=== PATIENT | female | born 1990 | race Caucasian/White ===

== ENCOUNTER 2018-11-28 12:30 | Inpatient (IN) | payer OTHER ==
[~2018-11-28] VITALS: Ht 152.4 cm; Wt 92.0 kg
[~2018-11-28 12:30] MED LIST: ACET500C5 PO; BEN25 PO; PREN-99 PO; SODI126M NASAL
[2018-11-28 13:14] VITALS: BP 120/76; PULSE 82; RESP 20; Ht 152.4 cm; Wt 92.0 kg
[2018-11-28] MEDS: LACTATED RINGER'S 1,000 ML IV SCH ×2 (14:07→21:30)
[2018-11-28] MEDS ORDERED: LACTATED RINGER'S 1,000 ML IV SCH (15:13)
[2018-11-28] MEDS ORDERED: ACETAMINOPHEN 325 MG TAB PO PRN (15:30)
--- NOTE | 2018-11-28 17:17 | TRIAGE ---
OB Triage Datetime Report Generated by CPN: 11/28/2018 17:16 Datetime: 11/28/2018 17:09 Stage of : Antepartum Maternal Assessment Level of Consciousness: Fully Conscious Headache: Denies Nausea/Vomiting: Denies RUQ Epigastric Pain: Denies Labor Evaluation Frequency: 3/hr Monitor Mode: External Duration (sec)2399: 50 Quality: Moderate Resting Tone [employer]: Relaxed Heart Rate FHR Baseline Rate: 125 Monitor Mode: External US Variability: Moderate 6-25 bpm Accelerations: 15X15 Decelerations: None Pain Assessment Pain Scale: 7 Pain Presence: Intermittent Pain Type: Contraction Pain Location: Abdomen Pain Relief Measures: Comfort Measures Membrane Status: Intact (Annotations: pt. denies srom or any loss of fluids) Vaginal Bleeding: None Datetime: 11/28/2018 16:26 Labor Evaluation Frequency: 0/hr Monitor Mode: External Heart Rate FHR Baseline Rate: 130 Monitor Mode: External US Variability: Moderate 6-25 bpm Accelerations: 15X15 Decelerations: None Datetime: 11/28/2018 16:02 Assessment Type: Admission Assessment Vaginal Bleeding: None Maternal Assessment Level of Consciousness: Fully Conscious DTR's/Clonus: DTRs 2+; No Clonus Headache: Denies Blurred Vision: No Respiratory Effort: Unlabored; Regular Rhythm; Equal Expansion Breath Sounds, Left: Clear and Equal Breath Sounds, Right: Clear and Equal Nausea/Vomiting: Denies RUQ Epigastric Pain: Denies Lower Extremities Edema: None Upper Extremities Edema: None Facial Edema: None Fall Risk Assessment History of Falling: (0) No Secondary Diagnosis: (0) No Ambulatory Aid: (0) Bedrest/Nurse Assist IV Therapy: (20) Yes (Annotations: lr 125ml/hr) Gait: (0) Normal/Bedrest/Immobile Mental Status: (0) Oriented to Own Ability Fall Score: 20 Fall Risk Score Definition: No Risk: No action required Pain Assessment Pain Scale: 7 Pain Presence: Intermittent Pain Type: Contraction Membrane Status: Intact Datetime: 11/28/2018 15:42 Monitor Mode: External Quality: Moderate Resting Tone [employer]: Relaxed Pain Assessment Pain Scale: 7 Pain Presence: Intermittent Pain Type: Contraction Pain Location: Abdomen Pain Relief Measures: Comfort Measures Datetime: 11/28/2018 15:00 Stage of : OB Triage Maternal Assessment Level of Consciousness: Fully Conscious Labor Evaluation Frequency: 4UC/HR Monitor Mode: External Duration (sec)2399: 80-90 Quality: Mild Resting Tone [employer]: Relaxed Heart Rate FHR Baseline Rate: 125 Monitor Mode: External US Variability: Moderate 6-25 bpm Accelerations: 15X15 Decelerations: None Category: Category I Pain Assessment Pain Scale: 4 Pain Presence: Intermittent Pain Type: Cramping Pain Location: Abdomen Pain Goal: 3 Membrane Status: Intact Vaginal Bleeding: None Datetime: 11/28/2018 14:00 Stage of : OB Triage Maternal Assessment Level of Consciousness: Fully Conscious Labor Evaluation Frequency: 4UC/HR Monitor Mode: External Duration (sec)2399: 60-80 Quality: Mild Resting Tone [employer]: Relaxed Heart Rate FHR Baseline Rate: 135 Monitor Mode: External US Variability: Moderate 6-25 bpm Accelerations: 15X15 Decelerations: None Category: Category I Pain Assessment Pain Scale: 4 Pain Presence: Intermittent Pain Type: Cramping Pain Location: Abdomen Pain Goal: 3 Membrane Status: Intact Vaginal Bleeding: None Datetime: 11/28/2018 13:30 Labor Evaluation Frequency: 8-11 Monitor Mode: External Duration (sec)2399: 60-80 Quality: Strong Pattern: Normal: <= 5 Contractions in 10 Minutes Resting Tone [employer]: Relaxed Heart Rate FHR Baseline Rate: 130 Monitor Mode: External US FHR Baseline Changes: No Baseline Change Variability: Moderate 6-25 bpm Accelerations: 15X15 Decelerations: None Category: Category I Pain Assessment Pain Scale: 7 Pain Presence: Intermittent Pain Type: Contraction Pain Location: Abdomen Pain Goal: 2 Datetime: 11/28/2018 13:07 Vaginal Exam Dilatation (cms): 1.0 Effacement (%): 50 Exam By: DR. NICHOLAS Datetime: 11/28/2018 12:52 Assessment Type: Triage Maternal Assessment Level of Consciousness: Fully Conscious DTR's/Clonus: DTRs 2+; No Clonus Headache: Denies Blurred Vision: No Respiratory Effort: Regular Rhythm; Equal Expansion Breath Sounds, Left: Clear and Equal Breath Sounds, Right: Clear and Equal Nausea/Vomiting: Denies RUQ Epigastric Pain: Denies Lower Extremities Edema: None Degree: None Upper Extremities Edema: None Degree: None Facial Edema: None Fall Risk Assessment History of Falling: (0) No Secondary Diagnosis: (0) No Ambulatory Aid: (0) Bedrest/Nurse Assist IV Therapy: (0) No Gait: (0) Normal/Bedrest/Immobile Mental Status: (0) Oriented to Own Ability Fall Score: 0 Fall Risk Score Definition: No Risk: No action required Datetime: 11/28/2018 12:50 Time of Arrival: 11/28/2018 12:00 EGA: 37.3 Arrived By: Ambulatory Arrived From: Home Chief Complaint: pt. sent from clinic for eval. of 's Movement: Present Contractions: Irregular Rupture of Membranes: Denies Vaginal Bleeding: None Vaginal Discharge: Denies Recent Sexual Intercouse: Denies Abdominal Trauma: Not Applicable Patient Complaints: Contractions; Cramping; Back Pain Time Provider Notified: 11/28/2018 13:07 Provider Notified: ellen Initial Plan: EFM/SVE/IV HYDRATION/EFW/BPP/CBC/CMP/UA/ Datetime: 11/28/2018 12:49 Monitor Mode: External Monitor Mode: External US Datetime: 11/11/2018 22:03 Monitor Mode: External Contraction Comments: NONE Heart Rate FHR Baseline Rate: 130 Monitor Mode: External US Variability: Moderate 6-25 bpm Accelerations: 15X15 Decelerations: None Category: Category I Datetime: 11/11/2018 21:24 Labor Evaluation Frequency: X2 Monitor Mode: External Duration (sec)2399: 40-60 Quality: Mild Pattern: Normal: <= 5 Contractions in 10 Minutes Resting Tone [employer]: Relaxed Heart Rate FHR Baseline Rate: 135 Monitor Mode: External US Variability: Moderate 6-25 bpm Accelerations: 15X15 Decelerations: None Category: Category I Datetime: 11/11/2018 21:17 EGA: 35.0 Datetime: 11/11/2018 20:50 Fall Score: 0 Fall Risk Score Definition: No Risk: No action required
[2018-11-29] MEDS: LACTATED RINGER'S 1,000 ML IV SCH ×2 (01:35→09:33)
--- NOTE | 2018-12-02 17:49 | DS ---
DATE OF ADMISSION: 11/28/2018 DATE OF DISCHARGE: 11/29/2018 HISTORY OF PRESENT ILLNESS: See dictated history and physical. PHYSICAL EXAMINATION: See dictated history and physical. ADMITTING DIAGNOSIS: A 37-4/7 weeks intrauterine , rule out labor. HOSPITAL COURSE: The patient had an ultrasound done and the RENE was 6.1. The following day after ad mission on 11/29/2018 after IV hydration, the repeat RENE was 9.1. She did not have any more pain. N o contractions. The cervix was still 1 cm thick and no change, so she was discharged home in good an d stable condition on general diet and activity was restricted. She was counseled. She was instruct ed. She was told to come back to the clinic in 1 week. She was told to come back to the hospital if there is any problem or concern. FINAL DIAGNOSES: 1. A 37-4/7 weeks intrauterine . 2. Dehydration. 3. Risk of oligohydramnios. Dictated By: PATRICIO SWAN/JAYESH Conf#: [id number] DID#: [id number]
--- NOTE | 2018-12-02 17:53 | PREOPHP ---
DATE OF ADMISSION: 11/28/2018 HISTORY OF PRESENT ILLNESS: This is a 28-year-old lady, 4, para 3, EDC 12/16/2018 at 37 and 3/7 weeks, admitted to labor and delivery area, rule out labor. She started to have contractions few hours prior to admission. PAST PERSONAL HISTORY: No history of diabetes, TB, asthma. ALLERGIES: NO ALLERGIES. SOCIAL HISTORY: The patient does not smoke. She does not drink. MEDICATIONS: She does not take any drugs except her: 1. Iron. 2. Vitamins. GYNECOLOGIC HISTORY: She had menarche at the age of 11, every 28 days interval, 3 to 4 days duration and moderate in amount. FAMILY HISTORY: Noncontributory. OBSTETRICAL HISTORY: She is 4, para 3 with 3 normal deliveries. FAMILY HISTORY: Mother and brother have diabetes. Mother and grandmother on mother's side have hype rtension. REVIEW OF SYSTEMS: CARDIOVASCULAR: No chest pain. RESPIRATORY: No cough. GASTROINTESTINAL: No diarrhea, no vomiting. GENITOURINARY: No dysuria. PHYSICAL EXAMINATION: GENERAL: Reveals a conscious, coherent lady and in no acute distress. VITAL SIGNS: Her blood pressure 120/80, pulse rate 80 per minute, respirations 16 per minute. BREASTS, HEART AND LUNGS: Within normal limits. ABDOMEN: Soft. Fundic height was 36 cm. heart tones 140 per minute. PELVIC: On admission revealed the cervix to be 1 cm dilated, thick, station -3 in cephalic presentat ion with the bag of water intact. EXTREMITIES: No pedal edema. ADMITTING DIAGNOSES: 1. A 37 and 3/7 weeks' intrauterine . 2. Rule out labor. The patient was planned to have OB ultrasound and IV hydration. The plans were explained to the rowan ent and she understood everything totally. The risks, benefits and alternatives were discussed with her as well. She had an ultrasound done and the RENE was 6.1, so she was given IV hydration and she w as admitted, to repeat her RENE the following day after admission. The plans as mentioned were explai [place] to the patient and she understood everything totally. Dictated By: PATRICIO SWAN/JAYESH Conf#: [id number] DID#: [id number]
== END 2018-11-29 12:15 | disposition home or self-care (01) | DRG 833 ==
LOC: L-D 12:30 → OBT 12:30 → L-D 14:50 → OBT 14:50 → PP1 15:38
PROVIDERS: ADMIT Obstetrics & Gynecology; ATTEND Obstetrics & Gynecology
DX: O99.283 Endocrine, nutritional and metabolic diseases complicating pregnancy, third trimester (principal); E86.0 Dehydration; Z3A.37 37 weeks gestation of pregnancy
CPT/HCPCS: 36415; 76815; 76818; 80053; 81001; 85025; 87086; 96360; 96361; G0463; J7120

== ENCOUNTER 2018-12-03 08:48 | Inpatient (IN) | payer OTHER ==
[~2018-12-03] VITALS: Ht 152.4 cm; Wt 92.6 kg
[~2018-12-03 08:48] MED LIST changes: -ACET500C5 PO; -BEN25 PO; -SODI126M NASAL
[2018-12-03] MEDS ORDERED: METHYLERGONOVINE 0.2 MG INJ IM PRN ×2 (09:00→22:30)
[2018-12-03] MEDS ORDERED: CARBOPROST 250 MCG INJ IM PRN ×2 (09:00→22:30)
[2018-12-03] MEDS ORDERED: MISOPROSTOL 200 MCG TAB PR PRN ×2 (09:00→22:30)
[2018-12-03] MEDS ORDERED: LIDOCAINE 1% (MPF) 30 ML INJ INJ PRN (09:00)
[2018-12-03] MEDS ORDERED: OXYTOCIN 30 UNITS/LR 500 ML IV PRN ×2 (09:00→22:30)
[2018-12-03] MEDS ORDERED: BUTORPHANOL 2 MG INJ IV PRN (09:00)
[2018-12-03] MEDS ORDERED: LACTATED RINGER'S 1,000 ML IV PRN (09:00)
[2018-12-03] MEDS ORDERED: OXYTOCIN 30 UNITS/LR 500 ML IV SCH ×4 (09:00→22:08)
[2018-12-03 09:05] VITALS: Ht 152.4 cm; Wt 92.6 kg
--- NOTE | 2018-12-03 09:07 | TRIAGE ---
OB Triage Datetime Report Generated by CPN: 12/03/2018 09:07 Datetime: 12/03/2018 09:02 Time of Arrival: 12/03/2018 09:10 Arrived By: Ambulatory Arrived From: Other Unit in Hospital Datetime: 12/03/2018 08:45 Assessment Type: Triage Time of Arrival: 12/03/2018 08:43 Arrived By: Ambulatory Arrived From: Home Chief Complaint: UC Movement: Present Contractions: Denies/Absent Rupture of Membranes: Denies Vaginal Bleeding: Normal Show Vaginal Discharge: Denies Recent Sexual Intercouse: Denies Abdominal Trauma: Not Applicable Patient Complaints: Contractions Time Provider Notified: 12/03/2018 09:00 Provider Notified: Salceda Initial Plan: NST, VE Maternal Assessment Level of Consciousness: Fully Conscious DTR's/Clonus: DTRs 2+; No Clonus Headache: Denies Blurred Vision: No Respiratory Effort: Unlabored; Regular Rhythm; Equal Expansion Breath Sounds, Left: Clear and Equal Breath Sounds, Right: Clear and Equal Nausea/Vomiting: Denies RUQ Epigastric Pain: Denies Lower Extremities Edema: Bilateral Lower Extremities Facial Edema: None Fall Risk Assessment History of Falling: (0) No Secondary Diagnosis: (0) No Ambulatory Aid: (0) Bedrest/Nurse Assist IV Therapy: (0) No Gait: (0) Normal/Bedrest/Immobile Mental Status: (0) Oriented to Own Ability Datetime: 11/29/2018 12:12 Comments: D/c instructions given to pt, all questions answered. Pt verbalized understanding. Datetime: 11/29/2018 11:47 Labor Evaluation Frequency: x3 Monitor Mode: External Duration (sec)2399: 40-60 Quality: Mild Pattern: Normal: <= 5 Contractions in 10 Minutes Resting Tone [place]: Relaxed Heart Rate FHR Baseline Rate: 125 Monitor Mode: External US FHR Baseline Changes: Bradycardia Variability: Moderate 6-25 bpm Accelerations: 15X15 Decelerations: None Category: Category I Comments: IV d/c, tip intact, pt tolerated procedure with no complications Pain Assessment Pain Scale: 0 Pain Presence: None/Denies Pain Type: N/A Pain Goal: 3 Datetime: 11/29/2018 11:00 Labor Evaluation Frequency: x4 Monitor Mode: External Duration (sec)2399: 50-70 Quality: Mild Pattern: Normal: <= 5 Contractions in 10 Minutes Resting Tone [place]: Relaxed Heart Rate FHR Baseline Rate: 125 Monitor Mode: External US FHR Baseline Changes: No Baseline Change Variability: Moderate 6-25 bpm Accelerations: 15X15 Decelerations: None Category: Category I Pain Assessment Pain Scale: 0 Pain Presence: None/Denies Pain Type: N/A Pain Goal: 3 Datetime: 11/29/2018 10:23 Comments: Dedra charge nurse in labor and delivery was informed of the order given by Dr. Ng. Suzanna Ng saw pt yesterday and VE done by her, so MD doesn't feel like she needs to see this pt toda y. This RN asked charge nurse if this pt would have to be seen by an MD. Dedra was told that per Dr. Beth kothari as long as pt has been seen within 24 hrs, the doctor doesn't need to see pt. Pt was in triage around noon and was seen by Dr. Ng around 1300. Datetime: 11/29/2018 10:18 Comments: Dr. Antoine was informed about the discharge order given by Luther Ng, and she was ask ed if she would see pt prior to send pt home. Dr. Antoine stated "I don't see her patients, she did n ot sign off to me" Datetime: 11/29/2018 10:15 Comments: Dr. Ng was informed of pt's VE results of . New order to send pt home. MD gary marshall "I saw the pt yesterday I don't need to see the pt today" This RN asked MD if she would like Dr. Antoine (laborist) to see pt. said "if you feel more comfortable to have Dr. Antoine see pt, she m ay see pt, otherwise pt may go home since I saw pt and I checked pt myself yesterday" Datetime: 11/29/2018 10:10 Vaginal Exam Dilatation (cms): 1.0 Effacement (%): 50 Station: -2 Exam By: lh Datetime: 11/29/2018 10:01 Comments: Dr. Ng was informed of pt's RENE results of 9.1, UC's q4-10min, pt denies pain or dis comfort at this time. New order for VE and call MD with results. Datetime: 11/29/2018 10:00 Maternal Assessment Level of Consciousness: Fully Conscious Headache: Denies Blurred Vision: No Nausea/Vomiting: Denies RUQ Epigastric Pain: Denies Facial Edema: None Labor Evaluation Frequency: 4-12 Monitor Mode: External Duration (sec)2399: 30-70 Quality: Mild Pattern: Normal: <= 5 Contractions in 10 Minutes Resting Tone [place]: Relaxed Heart Rate FHR Baseline Rate: 125 Monitor Mode: External US FHR Baseline Changes: No Baseline Change Variability: Moderate 6-25 bpm Accelerations: 15X15 Decelerations: None Category: Category I Pain Assessment Pain Scale: 0 Pain Presence: None/Denies Pain Type: N/A Pain Goal: 3 Membrane Status: Intact Datetime: 11/29/2018 09:41 Comments: Pt sitting up having breakfast Datetime: 11/29/2018 09:00 Labor Evaluation Frequency: 4-10 Monitor Mode: External Duration (sec)2399: 50-80 Quality: Mild Pattern: Normal: <= 5 Contractions in 10 Minutes Resting Tone [place]: Relaxed Heart Rate FHR Baseline Rate: 125 Monitor Mode: External US FHR Baseline Changes: No Baseline Change Variability: Moderate 6-25 bpm Accelerations: 15X15 Decelerations: None Category: Category I Pain Assessment Pain Scale: 0 Pain Presence: None/Denies Pain Type: N/A Pain Goal: 3 Datetime: 11/29/2018 08:00 Labor Evaluation Frequency: x4 Monitor Mode: External Duration (sec)2399: 40-70 Quality: Mild Pattern: Normal: <= 5 Contractions in 10 Minutes Resting Tone [place]: Relaxed Heart Rate FHR Baseline Rate: 125 Monitor Mode: External US FHR Baseline Changes: No Baseline Change Variability: Moderate 6-25 bpm Accelerations: 15X15 Decelerations: None Category: Category I Pain Assessment Pain Scale: 0 Pain Presence: None/Denies Pain Type: N/A Pain Goal: 3 Datetime: 11/29/2018 07:41 Comments: u/s in progress Datetime: 11/29/2018 07:28 Stage of : Antepartum Datetime: 11/29/2018 07:00 Labor Evaluation Frequency: X1 Monitor Mode: External Duration (sec)2399: 70 Quality: Mild Resting Tone [place]: Relaxed Heart Rate FHR Baseline Rate: 130 Monitor Mode: External US Variability: Moderate 6-25 bpm Accelerations: 15X15 Decelerations: None Category: Category I Datetime: 11/29/2018 06:00 Labor Evaluation Frequency: X1 Monitor Mode: External Duration (sec)2399: 80 Quality: Mild Resting Tone [place]: Relaxed Contraction Comments: PT DENIES CRAMPING AT THIS TME Heart Rate FHR Baseline Rate: 140 Monitor Mode: External US Variability: Moderate 6-25 bpm Accelerations: None Decelerations: None Category: Category I Comments: PT STATES + FM Pain Presence: None/Denies Pain Type: N/A Pain Assessment Comments: PT SLEEPING BUT EASILY AROUSED. Datetime: 11/29/2018 05:56 Monitor Mode: External US Datetime: 11/29/2018 05:00 Labor Evaluation Frequency: NONE Monitor Mode: External Resting Tone [place]: Relaxed Heart Rate FHR Baseline Rate: 135 Monitor Mode: External US Variability: Moderate 6-25 bpm Accelerations: 15X15 Decelerations: None Category: Category I Pain Presence: None/Denies Pain Type: N/A Pain Assessment Comments: PT SLEEPING WITH EVEN UNLABORED BREATHING Datetime: 11/29/2018 04:00 Labor Evaluation Frequency: X1 Monitor Mode: Internal Duration (sec)2399: 60 Quality: Mild Resting Tone [place]: Relaxed Heart Rate FHR Baseline Rate: 140 Monitor Mode: External US Variability: Moderate 6-25 bpm Accelerations: 15X15 Decelerations: None Category: Category I Pain Presence: None/Denies Pain Type: N/A Datetime: 11/29/2018 03:51 Stage of : Antepartum Temperature Route: Oral Pain Presence: None/Denies Pain Type: N/A Datetime: 11/29/2018 03:42 Stage of : Antepartum Datetime: 11/29/2018 03:00 Heart Rate FHR Baseline Rate: 140 Monitor Mode: External US Variability: Moderate 6-25 bpm Accelerations: 15X15 Decelerations: Variable Category: Category II Pain Presence: None/Denies Pain Type: N/A Datetime: 11/29/2018 02:05 Stage of : Antepartum Datetime: 11/29/2018 02:00 Labor Evaluation Frequency: NONE Monitor Mode: External Resting Tone [place]: Relaxed Heart Rate FHR Baseline Rate: 140 Monitor Mode: External US Variability: Moderate 6-25 bpm Accelerations: 15X15 Decelerations: None Category: Category I Pain Presence: None/Denies Pain Type: N/A Datetime: 11/29/2018 01:35 Stage of : Antepartum Datetime: 11/29/2018 01:00 Labor Evaluation Frequency: NONE Monitor Mode: External Resting Tone [place]: Relaxed Contraction Comments: PT DENIES UC'S AT THIS TIME. Heart Rate FHR Baseline Rate: 135 Variability: Marked >25 bpm Comments: TRACING UNREADABLE DUE TO PT'S POSITION AND MONITOR TURNING OFF WHEN CORD CAME UNPLUGGED . Pain Presence: None/Denies Pain Type: N/A Datetime: 11/29/2018 00:00 Labor Evaluation Frequency: X4 Monitor Mode: External Duration (sec)2399: 50-80 Quality: Mild Resting Tone [place]: Relaxed Heart Rate FHR Baseline Rate: 140 Monitor Mode: External US Variability: Moderate 6-25 bpm Accelerations: 15X15 Decelerations: None Category: Category I Pain Presence: None/Denies Pain Type: N/A Datetime: 11/28/2018 23:15 Stage of : Antepartum Datetime: 11/28/2018 23:10 Comments: FM BELTS REMOVED. BELLY BAND PLACED ON PT Pain Presence: None/Denies Pain Type: N/A Datetime: 11/28/2018 23:00 Labor Evaluation Frequency: X3 Monitor Mode: External Duration (sec)2399: 70-90 Quality: Mild Resting Tone [place]: Relaxed Heart Rate FHR Baseline Rate: 135 Monitor Mode: External US Variability: Moderate 6-25 bpm Accelerations: 15X15 Decelerations: None Category: Category I Pain Presence: None/Denies Pain Type: N/A Datetime: 11/28/2018 21:59 Labor Evaluation Frequency: X1 Monitor Mode: External Duration (sec)2399: 90 Resting Tone [place]: Relaxed Heart Rate FHR Baseline Rate: 135 Monitor Mode: External US Variability: Moderate 6-25 bpm Accelerations: 15X15 Decelerations: None Category: Category I Pain Presence: None/Denies Pain Type: N/A Datetime: 11/28/2018 21:00 Monitor Mode: External Contraction Comments: REAPPLIED ATER WALK Monitor Mode: External US Comments: REAPPLIED FTER WALK Pain Presence: None/Denies Pain Type: N/A Datetime: 11/28/2018 20:37 Labor Evaluation Frequency: NONE Monitor Mode: External Resting Tone [place]: Relaxed Heart Rate FHR Baseline Rate: 135 Monitor Mode: External US Variability: Moderate 6-25 bpm Accelerations: 15X15 Decelerations: None Category: Category I Datetime: 11/28/2018 20:15 Assessment Type: Ongoing Assessment Maternal Assessment Level of Consciousness: Fully Conscious DTR's/Clonus: DTRs 2+; No Clonus Headache: Denies Blurred Vision: No Respiratory Effort: Unlabored; Regular Rhythm; Equal Expansion Breath Sounds, Left: Clear and Equal Breath Sounds, Right: Clear and Equal Nausea/Vomiting: Denies RUQ Epigastric Pain: Denies Lower Extremities Edema: None Degree: None Upper Extremities Edema: None Degree: None Facial Edema: None Fall Risk Assessment History of Falling: (0) No Secondary Diagnosis: (0) No Ambulatory Aid: (0) Bedrest/Nurse Assist IV Therapy: (0) No Gait: (0) Normal/Bedrest/Immobile Mental Status: (0) Oriented to Own Ability Fall Score: 0 Fall Risk Score Definition: No Risk: No action required Datetime: 11/28/2018 20:00 Labor Evaluation Frequency: NONE Monitor Mode: External Resting Tone [place]: Relaxed Heart Rate FHR Baseline Rate: 130 Monitor Mode: External US Variability: Moderate 6-25 bpm Accelerations: 15X15 Decelerations: None Category: Category I Pain Presence: None/Denies Pain Type: N/A Datetime: 11/28/2018 19:15 Stage of : Antepartum Temperature Route: Oral Monitor Mode: External Contraction Comments: PT STATES + FM Monitor Mode: External US Comments: PT DENIES CRAMPING Pain Assessment Pain Scale: 5 Pain Presence: Intermittent Pain Type: Cramping Pain Location: Abdomen Pain Goal: 3 Pain Relief Measures: Comfort Measures Pain Assessment Comments: PT STATES SHE HAS PIN WITH OCCASSIONAL UC'S Membrane Status: Intact Vaginal Bleeding: None Datetime: 11/28/2018 18:41 Labor Evaluation Frequency: irregular Monitor Mode: External Quality: Moderate Heart Rate FHR Baseline Rate: 135 Monitor Mode: External US Variability: Moderate 6-25 bpm Accelerations: 15X15 Decelerations: None Datetime: 11/28/2018 18:00 Stage of : Antepartum Maternal Assessment Level of Consciousness: Fully Conscious Headache: Denies Nausea/Vomiting: Denies RUQ Epigastric Pain: Denies Labor Evaluation Frequency: 3/hr Monitor Mode: External Duration (sec)2399: 50 Quality: Moderate Resting Tone [place]: Relaxed Heart Rate FHR Baseline Rate: 125 Monitor Mode: External US Variability: Moderate 6-25 bpm Accelerations: 15X15 Decelerations: None Pain Assessment Pain Scale: 7 Pain Presence: Intermittent Pain Type: Contraction Pain Location: Abdomen Pain Relief Measures: Comfort Measures Membrane Status: Intact Vaginal Bleeding: None Datetime: 11/28/2018 17:52 Pain Assessment Pain Scale: 7 Pain Presence: Intermittent Pain Type: Contraction Pain Location: Abdomen Pain Relief Measures: Comfort Measures Datetime: 11/28/2018 17:41 Comments: loss of contact w/ pt. sitting up for dinner Datetime: 11/28/2018 16:02 Fall Score: 20 Fall Risk Score Definition: No Risk: No action required Datetime: 11/28/2018 12:52 Fall Score: 0 Fall Risk Score Definition: No Risk: No action required Datetime: 11/28/2018 12:50 EGA: 37.3 Datetime: 11/11/2018 21:17 EGA: 35.0 Datetime: 11/11/2018 20:50 Fall Score: 0 Fall Risk Score Definition: No Risk: No action required
[2018-12-03] MEDS: LACTATED RINGER'S 1,000 ML IV SCH ×2 (09:15→15:50)
[2018-12-03] MEDS: LACTATED RINGER'S 1,000 ML IV* SCH (22:08)
[2018-12-03] MEDS ORDERED: HYDROCODONE/APAP (5/325) TAB PO PRN ×2 (22:30)
[2018-12-03] MEDS ORDERED: DIPHENHYDRAMINE 25 MG CAP PO PRN (22:30)
[2018-12-03] MEDS ORDERED: NA PHOSPHATE/BIPHOS 133 ML ENEMA PR PRN (22:30)
[2018-12-03] MEDS ORDERED: ONDANSETRON 4 MG INJ IV PRN (22:30)
[2018-12-03] MEDS ORDERED: ZOLPIDEM 5 MG TAB PO PRN (22:30)
[2018-12-03] MEDS ORDERED: BENZOCAINE 20% 56 ML SPRAY TOP PRN (22:30)
[2018-12-03] MEDS ORDERED: WITCH HAZEL/GLYCERIN PAD PR PRN (22:30)
[2018-12-03] MEDS ORDERED: METHYLERGONOVINE 0.2 MG TAB PO PRN (22:30)
[2018-12-03] MEDS ORDERED: LANOLIN HPA 1 PKT TOP PRN (22:30)
[2018-12-03] MEDS ORDERED: MAGNESIUM HYDROXIDE 30ML CUP PO PRN (22:30)
[2018-12-03] MEDS ORDERED: IBUPROFEN 600 MG TAB PO PRN (22:30)
[2018-12-03 23:40] VITALS: BP 126/64; PULSE 74; RESP 18
[2018-12-04 00:10] VITALS: BP 122/59; PULSE 74; RESP 18
[2018-12-04] MEDS: IBUPROFEN 600 MG TAB PO PRN (00:15)
[2018-12-04] MEDS: LACTATED RINGER'S 1,000 ML IV SCH (01:00)
[2018-12-04 04:30] VITALS: BP 136/57; PULSE 73; RESP 18
[2018-12-04] MEDS: LACTATED RINGER'S 1,000 ML IV* SCH (06:08)
[2018-12-04] MEDS: SENNA/DOCUSATE NA (8.6MG/50MG) TAB PO SCH ×2 (09:20→21:27)
[2018-12-04 16:00] VITALS: BP 131/78; PULSE 81; RESP 18
--- NOTE | 2018-12-04 16:02 | PN ---
Date/Time of Note Date/Time of Note DATE: 12/04/18 TIME: 16:01 Assessment/Plan VTE Prophylaxis Risk score (from Nsg)>0 risk: 1 SCD applied (from Nsg): Yes Pharmacological prophylaxis: NA/contraindicated Pharm contraindication: low risk/ambulating Lines/Catheters IV Catheter Type (from Nrs): Peripheral IV Assessment/Plan Assessment/Plan POST DAY 1 HOME TOMORROW RETURN TO CLINIC IN 2 WEEKS CONTINUE WITH VITAMINS OD AND FERROUS SULFATE PO TID DIET ADVISED COUNSELED INSTRUCTED CALL OFFICE IF THERE IS ANY PROBLEMS OR CONCERN Result Diagram: 12/04/18 0653 Results 24hrs Laboratory Tests Test 12/04/18 06:44 12/04/18 06:53 Lab Scanned Report REFERENCE LAB White Blood Count 13.1 H Red Blood Count 3.90 L Hemoglobin 12.2 Hematocrit 36.1 L Mean Corpuscular Volume 92.6 Mean Corpuscular Hemoglobin 31.3 Mean Corpuscular Hemoglobin Concent 33.8 Red Cell Distribution Width 13.6 Platelet Count 213 Mean Platelet Volume 11.3 H Immature Granulocytes % 0.600 H Neutrophils % 68.8 Lymphocytes % 21.5 Monocytes % 7.9 Eosinophils % 0.9 Basophils % 0.3 Nucleated Red Blood Cells % 0.0 Immature Granulocytes # 0.080 H Neutrophils # 9.0 H Lymphocytes # 2.8 Monocytes # 1.0 H Eosinophils # 0.1 Basophils # 0.0 Nucleated Red Blood Cells # 0.0 Subjective 24 Hr Interval Summary Free Text/Dictation FEELS GOOD, GOOD URINE OUTPUT, GOOD BOWEL MOVEMENT Exam/Review of Systems Exam Vitals Vital Signs Date Temp Pulse Resp B/P (MAP) Pulse Ox O2 O2 Flow FiO2 Time Delivery Rate 12/04/18 98.8 73 18 136/57 Room Air 04:30 (83) Intake and Output 12/03/18 12/03/18 12/04/18 1515:00 23:00 07:00 IntakeIntake Total 1875 ml 250 ml OutputOutput Total 350 ml 1137 ml BalanceBalance 1525 ml -887 ml Exam VITAL SIGNS STABLE: YES AFEBRILE: YES BREAST NOT ENGORGED, NON-TENDER, NO APPRECIABLE MASS: YES LUNGS CLEAR, NO RALES, WHEEZES, RHONCHI: YES SINUS RHYTHM WITHOUT MURMUR: YES ABDOMEN: NON-TENDER FUNDUS: BELOW UMBILICUS BOWEL SOUNDS: PRESENT UTERUS: FIRM INTACT PERINEUM: YES OCHIA: LIGHT DEEP TENDON REFLEXES: 0 EXTREMITIES: NO CALF TENDERNESS EDEMA SCALE: NONE Results Results 24hrs Laboratory Tests Test 12/04/18 06:44 12/04/18 06:53 Lab Scanned Report REFERENCE LAB White Blood Count 13.1 H Red Blood Count 3.90 L Hemoglobin 12.2 Hematocrit 36.1 L Mean Corpuscular Volume 92.6 Mean Corpuscular Hemoglobin 31.3 Mean Corpuscular Hemoglobin Concent 33.8 Red Cell Distribution Width 13.6 Platelet Count 213 Mean Platelet Volume 11.3 H Immature Granulocytes % 0.600 H Neutrophils % 68.8 Lymphocytes % 21.5 Monocytes % 7.9 Eosinophils % 0.9 Basophils % 0.3 Nucleated Red Blood Cells % 0.0 Immature Granulocytes # 0.080 H Neutrophils # 9.0 H Lymphocytes # 2.8 Monocytes # 1.0 H Eosinophils # 0.1 Basophils # 0.0 Nucleated Red Blood Cells # 0.0 Medications Medication Current Medications Butorphanol Tartrate (Stadol) 2 mg Q2H PRN IV .PAIN Last administered on 12/03/18 20:58; Admin Dose 2 MG; Start 12/03/18 at 09:00 Lidocaine (Xylocaine 1% (Mpf)) 30 ml ONCE PRN INJ .EPISIOTOMY; Start 12/03/18 at 09:00 Oxytocin/Lactated Ringer's 500 ml @ 500 mls/hr ONCE POST IV Last administered on 12/03/18 22:15; Admin Dose 500 MLS/HR; Start 12/03/18 at 09:00 Oxytocin/Lactated Ringer's 500 ml @ 125 mls/hr POST IV Last administered on 12/03/18 22:15; Admin Dose 125 MLS/HR; Start 12/03/18 at 09:00 Ibuprofen (Motrin) 600 mg ONCE PRN PO .PAIN 1-5 Last administered on 12/04/18 00:15; Admin Dose 600 MG; Start 12/03/18 at 09:00 Lactated Ringer's 1,000 ml @ 2,000 mls/hr Q30M PRN IV .ANESTHESIA; Start 12/03/18 at 09:00 Oxytocin/Lactated Ringer's 500 ml @ 0 mls/hr FOR AUGMENTATION IV Last administered on 3/4/19at 20:59; Admin Dose 1 MLS/HR; Start 12/03/18 at 21:00 Methylergonovine Maleate (Methergine) 0.2 mg Q6H PRN PO .VAGINAL BLEED; Start 12/03/18 at 22:30 Ibuprofen (Motrin) 600 mg Q6 PRN PO MILD PAIN LEVEL 1-3; Start 12/03/18 at 22:30 Acetaminophen/ Hydrocodone Bitart ([place] (5/325)) 1 tab Q4H PRN PO MODERATE P AIN LEVEL 4-6; Start 12/03/18 at 22:30 Acetaminophen/ Hydrocodone Bitart ([place] (5/325)) 2 tab Q4H PRN PO SEVERE PAIN LEVEL 7-10; Start 12/03/18 at 22:30 Ondansetron HCl (Zofran Inj) 4 mg Q6H PRN IV NAUSEA/VOMITING; Start 12/03/18 at 22:30 Diphenhydramine HCl (Benadryl) 25 mg Q6H PRN PO .PRUTITUS; Start 12/03/18 at 22:30 Zolpidem Tartrate (Ambien) 5 mg QHS PRN PO .INSOMNIA; Start 12/03/18 at 22:30 Senna/Docusate Sodium (Senokot-S) 1 tab BID PO Last administered on 12/04/18at 09:20; Admin Dose 1 TAB; Start 12/04/18 at 09:00 Magnesium Hydroxide (Milk Of Mag) 30 ml Q12H PRN PO .CONSTIPATION; Start 12/03/18 at 22:30 Sodium Biphosphate/ Sodium Phosphate (Fleet Enema) 133 ml DAILY PRN RI .CONSTIPATION; Start 12/03/18 at 22:30 Witch Corazon/ Glycerin (Tucks Pads) 1 pad BEDSIDE MEDICATION PRN RI .HEMO RRHOID/EPISIOTOMY PAIN; Start 12/03/18 at 22:30 Benzocaine (Dermoplast [place]) 1 spray BEDSIDE MEDICATION PRN TOP .HEMMORHOID/EPISIOTOMY PAIN; Start 12/03/18 at 22:30 Lanolin (Lanolin Hpa) 1 applic BEDSIDE MEDICATION PRN TOP .NIPPLES Last administered on 12/04/18at 00:15; Admin Dose 1 APPLIC; Start 12/03/18 at 22:30 Measles/Mumps/ Rubella Vaccine Live (Mmr Ii Vaccine) 0.5 ml ONCE ONCE SC* ; Start 12/05/18 at 09:00; Stop 12/05/18 at 09:01 Diphtheria/ Tetanus/Acell Pertussis (Adacel) 0.5 ml ONCE ONCE IM* ; Start 12/05/18 at 09:00; Stop 12/05/18 at 09:01 Varicella Virus Vaccine Live (Varivax Vaccine With Diluent) 1,350 unit ONCE ONCE SC* ; Start 12/05/18 at 09:00; Stop 12/05/18 at 09:01 Oxytocin/Lactated Ringer's 500 ml @ 0 mls/hr ONCE PRN IV .VAGINAL BLEEDING; Start 12/03/18 at 22:30 Methylergonovine Maleate (Methergine) 0.2 mg ONCE PRN IM .VAGINAL BLEEDING; Start 12/03/18 at 22:30 Carboprost Tromethamine (Hemabate) 250 mcg ONCE PRN IM .VAGINAL BLEEDING; Start 12/03/18 at 22:30 Misoprostol (Cytotec) 1,000 mcg ONCE PRN RI .VAGINAL BLEEDING; Start 12/03/18 at 22:30 PATRICIO NICHOLAS MD Dec 04, 2018 16:02
[2018-12-04 19:50] VITALS: BP 123/81; PULSE 85; RESP 16
[2018-12-05] MEDS: IBUPROFEN 600 MG TAB PO PRN (01:23)
[2018-12-05 04:35] VITALS: BP 118/72; RESP 16
[2018-12-05 08:15] VITALS: BP 120/78; PULSE 66; RESP 18
[2018-12-05] MEDS ORDERED: VARICELLA VACCINE LIVE/PF 1,350 UNIT/0.5 ML ML SC* ONE (09:00)
[2018-12-05] MEDS ORDERED: MEASLES,MUMPS,RUBELLA VACCINE INJ SC* ONE (09:00)
[2018-12-05] MEDS ORDERED: DIPHTH/TET/ACEL PERTUSS (ADULT) 0.5 ML VIAL IM* ONE (09:00)
[2018-12-05] MEDS: SENNA/DOCUSATE NA (8.6MG/50MG) TAB PO SCH (09:02)
--- NOTE | 2018-12-06 04:30 | PREOPHP ---
DATE OF ADMISSION: 12/03/2018 HISTORY OF PRESENT ILLNESS: This is a 28-year-old lady, 4, para 3. Her EDC is 12/16/2018, a t 38 and 1/7 weeks, admitted to labor and delivery area in labor. She had care in my [facility] a office and the care was uneventful. She started to have contractions about a few hours pr ior to admission and got worse up to the time of admission. PAST PERSONAL HISTORY: No history of diabetes, TB or asthma. ALLERGIES: NO ALLERGIES. SOCIAL HISTORY: The patient does not smoke. She does not drink. MEDICATIONS: She does not take any drugs except her iron and vitamins. GYNECOLOGIC HISTORY: She had menarche at the age of 11, every 28 days interval, 3 to 4 days duration , and moderate in amount. FAMILY HISTORY: Brother and mother have diabetes. Grandmother on mother's side had hypertension. GYNECOLOGIC HISTORY: She is 4, para 3. Her first delivery was in 2006, second in 2007 and t hird in 2018. All normal deliveries. REVIEW OF SYSTEMS: CARDIOVASCULAR: No chest pains. RESPIRATORY: No cough. GASTROINTESTINAL: No diarrhea, no vomiting. GENITOURINARY: No dysuria. PHYSICAL EXAMINATION: GENERAL: Reveals a conscious, coherent lady and in no acute distress. VITAL SIGNS: Her blood pressure 120/80, pulse rate 80 per minute and respirations 16 per minute. BREASTS, HEART AND LUNGS: Within normal limits. ABDOMEN: Soft. No organomegaly. Fundic height 38 cm. heart tones 140 per minute. PELVIC: On admission revealed the cervix to be 3 to 4 cm dilated, 80% effaced, station 0, in cephali c presentation with the bag of water intact. Good bloody show was noted. EXTREMITIES: No pedal edema. ADMITTING DIAGNOSIS: A 38 and 1/7 weeks intrauterine in labor. The plans of delivery were explained to the patient as to go for vaginal delivery. The risks, benefits, and alternatives to va ginal delivery were explained to the patient and she understood everything totally. The risks of C-s ection were explained to her. She wanted to go for vaginal delivery, so she was observed for progres s of labor. At about 8:30 p.m. on 12/03/2018, she was noted to be 6 cm dilated and 100% effaced, bag of water intact and at 0 station. She had artificial rupture of membranes. scalp electrode a nd IUPC was inserted and the patient progressed well. She was given Stadol x1 and she was given Rubio nabor augmentation. Dictated By: PATRICIO SWAN/JAYESH Conf#: [id number] DID#: [id number]
--- NOTE | 2018-12-06 04:39 | OPR ---
DATE OF OPERATION: 12/03/2018 HISTORY OF PRESENT ILLNESS: See dictated history and physical. PHYSICAL EXAMINATION: See dictated history and physical. ADMITTING DIAGNOSIS: A 38 and 1/7 weeks intrauterine in labor. PROGRESS OF LABOR: See dictated history and physical. The patient progressed well. She received Stadol x1 and Pitocin augmentation. She had a normal spon taneous vaginal delivery on 12/03/2018 at 2157 p.m., delivering a healthy baby boy, Apgars of 8 and 9 over intact perineum. Baby weighed 3335 grams, 7 pounds 6 ounces, 18 inches long. The placenta was delivered spontaneously and complete. Manual exploration of the uterus revealed no membranes were left behind. The cervix, vagina and vulva were free of hematoma. The position was direct occip ut anterior. There were 3 vessels in the cord. The placenta was normal with a small shiny christina e and a pinkish maternal side. The patient tolerated the delivery well. Estimated blood loss about 300 mL. Vital signs were stable during and after the delivery. Dictated By: PATRICIO SWAN/JAYESH Conf#: [id number] DID#: [id number]
--- NOTE | 2018-12-08 20:35 | DS ---
DATE OF ADMISSION: 12/03/2018 DATE OF DISCHARGE: 12/05/2018 This is a 28-year-old lady, 4 para 3, EDC 12/16/2018, at 38 and 1/7 weeks, admitted in labor. HISTORY OF THE PRESENT ILLNESS: See dictated history and physical. PHYSICAL EXAMINATION: See dictated history and physical. ADMITTING DIAGNOSIS: A 38 and 1/7 weeks intrauterine in labor. PLANS OF DELIVERY: See dictated history and physical. HOSPITAL COURSE: The patient progressed well. She received Stadol for pain. She was given Pitocin augmentation. She had a normal spontaneous vaginal delivery on 12/03/2018 at 2157 delivering a healt hy baby boy, Apgars 8 and 9, over intact perineum. Baby weighed 7 pounds 6 ounces and 18 inches long . She tolerated the delivery well. She did have good course. She had good bowel movemen t . She had less pain . She was discharged to home on the second day on general diet and the activity was restricted. She was counseled. She was instructed. She was t old to continue to take her iron and vitamins at home. She was told to come back to the clinic in tw o weeks. FINAL DIAGNOSES: A 38 and 1/7 weeks intrauterine in labor and delivered. Dictated By: PATRICIO SWAN/JAYESH Conf#: [id number] DID#: [id number]
== END 2018-12-05 17:27 | disposition home or self-care (01) | DRG 807 ==
LOC: OBT 08:48 → L-D 08:50 → OBT 09:00 → L-D 09:09 → PP1 23:37
PROVIDERS: ADMIT Obstetrics & Gynecology; ATTEND Obstetrics & Gynecology
PROC: 10E0XZZ Delivery of Products of Conception, External Approach (ICD-10-PCS; principal; 2018-12-03)
DX: O80 Encounter for full-term uncomplicated delivery (principal); Z37.0 Single live birth; Z3A.38 38 weeks gestation of pregnancy
CPT/HCPCS: 81001; 85025; 85610; 85730; 86592; 86850; 86900; 86901; 87086; 87340; 90716; G0463; J0595; J2590; J7120

== ENCOUNTER → 2019-05-07 | Emergency (ER) | payer OTHER ==
[~2019-05-07] VITALS: Ht 152.4 cm; Wt 84.9 kg
[~2019-05-07] MED LIST changes: +CYCL10TA7 PO; +NAPR-985 PO
[2019-05-07 20:44] VITALS: BP 134/82; PULSE 68; RESP 20; Ht 152.4 cm; Wt 84.9 kg
--- NOTE | 2019-05-08 01:06 | ERD ---
ER Documentation Chief Complaint Chief Complaint C/O UPPER BACK PAIN S/P "OVER STRETCHING" SINCE YESTERDAY HPI 28-year-old female with no significant past medical history presents emergency department complaining of right upper back pain for the past 1 day after a stretch overhead. She states she felt a "muscle pull" in her right upper back. Her pain is rated 7/10 in severity and worse with movement. Pain is worse with working as she has to do heavy lifting. She took no medication for relief of symptoms. She denies any other symptoms or injuries at this time. ROS All systems reviewed and are negative except as per history of present illness. Medications Home Meds Active Scripts Naproxen* (Naprosyn*) 500 Mg Tablet, 500 MG PO BID PRN for PAIN AND/OR INFLAMMATION, #30 TAB Prov:BENJI SOTO PA-C 05/07/19 Cyclobenzaprine Hcl* (Cyclobenzaprine Hcl*) 10 Mg Tablet, 10 MG PO TID, #15 TAB Prov:BENJI SOTO PA-C 05/07/19 Reported Medications Vit #76/Iron,Carb/FA (Pnv 29-1 Tablet) 1 Each Tablet, 1 EACH PO, TAB 11/11/18 Allergies Allergies: Coded Allergies: No Known Allergy (Unverified , 11/11/18) PMhx/Soc Medical and Surgical Hx: pt denies Medical Hx, pt denies Surgical Hx Hx Alcohol Use: No Hx Substance Use: No Hx Tobacco Use: No Smoking Status: Never smoker FmHx Family History: No diabetes Physical Exam Vitals Vital Signs Date Temp Pulse Resp B/P (MAP) Pulse Ox O2 O2 Flow FiO2 Time Delivery Rate 05/07/19 98.0 68 20 134/82 99 20:44 (99) Physical Exam Const: No acute distress Head: Atraumatic Eyes: Normal Conjunctiva ENT: Normal External Ears, Nose and Mouth. Neck: Full range of motion. No meningismus. Tenderness palpation of the right trapezius region. Resp: Clear to auscultation bilaterally Cardio: Regular rate and rhythm, no murmurs Skin: No petechiae or rashes Back: No midline or flank tenderness Ext: No cyanosis, or edema Neur: Awake and alert Psych: Normal Mood and Affect Procedures/MDM 20-year-old female presents to the emergency department with signs and symptoms most consistent with strain of the right trapezius muscle. Patient's musculoskeletal symptoms have stabilized while they have been evaluated in the department and are appropriate for outpatient work up. No evidence of cauda equina, cord compression, infiltrative, or infectious etiology. No evidence of life-threatening pathology at time of discharge. Pt/family in agreement with discharge plan/diagnosis. Pt/family advised to return immediately with any new or worsening symptoms. Follow-up with primary care physician within the next 1-2 days. Patient's blood pressure was elevated (>120/80) but appears stable without evidence of hypertension emergency or urgency. The patient is to follow-up and pursue outpatient monitoring and therapy with their primary care physician within 1 week and return immediately if they have any new, worsening, or concerning symptoms. Disclaimer: Inadvertent spelling and grammatical errors are likely due to EHR/dictation software use and do not reflect on the overall quality of patient care. Also, please note that the electronic time recorded on this note does not necessarily reflect the actual time of the patient encounter. Departure Diagnosis: Primary Impression: Strain of right trapezius muscle Encounter type: initial encounter Qualified Codes: S46.811A - Strain of other muscles, fascia and tendons at shoulder and upper arm level, right arm, initial encounter Condition: Fair Patient Instructions: Muscle Spasm Additional Instructions: Call your primary care doctor TOMORROW for an appointment during the next 1-2 days.See the doctor sooner or return here if your condition worsens before your appointment time. BENJI SOTO PA-C May 08, 2019 01:06
== END | disposition home or self-care (01) ==
LOC: FTE 20:40
DX: S46.811A Strain of other muscles, fascia and tendons at shoulder and upper arm level, right arm, initial encounter (principal); X50.0XXA Overexertion from strenuous movement or load, initial encounter; Y92.9 Unspecified place or not applicable
CPT/HCPCS: 99283